=== PATIENT | male | born 1970 | race Caucasian/White ===

== ENCOUNTER 2016-10-02 22:12 | Emergency (ER) | payer BC, OTHER ==
[2016-10-02 22:47] VITALS: RESP 18; TEMP 99
[2016-10-02] MEDS ORDERED: SODIUM CHLORIDE 0.9% 500 ML IV STA (23:09)
[2016-10-02] MEDS ORDERED: ONDANSETRON 4 MG/2 ML VIAL IVP STA (23:09)
--- NOTE | 2016-10-02 23:12 | ED ---
General Adult HPI - General Chief complaint: Abdominal Pain Stated complaint: abd pain Time Seen by Provider: 10/02/16 22:45 Source: patient, RN notes reviewed Mode of arrival: ambulatory Limitations: no limitations - History of Present Illness Initial comments: This is a 45-year-old male who presents emergency Department complaining of a three-day history of epigastric abdominal pain he also states his little discomfort right upper quadrant. Patient states he's been nauseated throughout this time and not eating much because of it. Patient denies any vomiting. Patient states food seems to make him more nauseated. Patient states the pain is intermittent and goes away completely at times but comes back after a few hours. Patient states yesterday he took some Ex-Lax because he thought he might be constipated and he did have some bouts of diarrhea today. Patient denies any previous history of similar pain. Patient states she's had no abdominal surgeries. Patient denies any other medical history. Patient denies taking any other meds. Patient denies chest pain difficult breathing shortness of breath. Patient denies any recent fever or chills. - Related Data Previous Rx's Medication Instructions Recorded Ondansetron Odt [Zofran Odt] 4 mg PO Q8HR PRN #10 tab 10/03/16 Allergies Allergy/AdvReac Type Severity Reaction Status Date / Time No Known Allergies Allergy Verified 10/02/16 23:07 Review of Systems ROS Statement: Those systems with pertinent positive or pertinent negative responses have been documented in the HPI. ROS Other: All systems not noted in ROS Statement are negative. Past Medical History Past Medical History: No Reported History History of Any Multi-Drug Resistant Organisms: None Reported Past Surgical History: No Surgical Hx Reported Past Psychological History: No Psychological Hx Reported Smoking Status: Never smoker Past Alcohol Use History: Occasional Past Drug Use History: None Reported General Exam - General Exam Comments Initial Comments: GENERAL: Patient is well-developed and well-nourished. Patient is nontoxic and well- hydrated and is in mild distress. ENT: Neck is soft and supple. No significant lymphadenopathy is noted. Oropharynx is clear. Moist mucous membranes. Neck has full range of motion without eliciting any pain. EYES: The sclera were anicteric and conjunctiva were pink and moist. Extraocular movements were intact and pupils were equal round and reactive to light. Eyelids were unremarkable. PULMONARY: Unlabored respirations. Good breath sounds bilaterally. No audible rales rhonchi or wheezing was noted. CARDIOVASCULAR: There is a regular rate and rhythm without any murmurs gallops or rubs. ABDOMEN: Mild right upper quadrant and epigastric tenderness. No palpable organomegaly was noted. There is no palpable pulsatile mass. SKIN: Skin is clear with no lesions or rashes and otherwise unremarkable. NEUROLOGIC: Patient is alert and oriented x3. Cranial nerves II through XII are grossly intact. Motor and sensory are also intact. Normal speech, volume and content. Symmetrical smile. MUSCULOSKELETAL Normal extremities with adequate strength and full range of motion. LYMPHATICS: No significant lymphadenopathy is noted PSYCHIATRIC: Normal psychiatric evaluation. Limitations: no limitations Course Vital Signs 10/02/16 10/03/16 22:44 01:43 Temperature 99.0 F Pulse Rate 100 89 Respiratory 18 18 Rate Blood Pressure 123/88 135/78 O2 Sat by Pulse 97 97 Oximetry Medical Decision Making - Lab Data Result diagrams: 10/02/16 23:20 10/02/16 23:20 Lab Results 10/02/16 10/02/16 10/02/16 Range/Units 23:20 23:20 23:25 WBC 12.0 H (3.8-10.6) k/uL RBC 5.86 (4.30-5.90) m/uL Hgb 17.5 (13.0-17.5) gm/dL Hct 51.9 (39.0-53.0) % MCV 88.4 (80.0-100.0) fL MCH 29.8 (25.0-35.0) pg MCHC 33.7 (31.0-37.0) g/dL RDW 12.8 (11.5-15.5) % Plt Count 289 (150-450) k/uL Neutrophils % 76 % Lymphocytes % 14 % Monocytes % 6 % Eosinophils % 3 % Basophils % 1 % Neutrophils # 9.1 H (1.3-7.7) k/uL Lymphocytes # 1.7 (1.0-4.8) k/uL Monocytes # 0.7 (0-1.0) k/uL Eosinophils # 0.4 (0-0.7) k/uL Basophils # 0.1 (0-0.2) k/uL Sodium 138 (137-145) mmol/L Potassium 3.7 (3.5-5.1) mmol/L Chloride 102 (98-107) mmol/L Carbon Dioxide 24 (22-30) mmol/L Anion Gap 12 mmol/L BUN 12 (9-20) mg/dL Creatinine 0.90 (0.66-1.25) mg/dL Est GFR (MDRD) Af Amer >60 (>60 ml/min/1.73 sqM) Est GFR (MDRD) Non-Af >60 (>60 ml/min/1.73 sqM) Glucose 115 H (74-99) mg/dL Calcium 9.7 (8.4-10.2) mg/dL Total Bilirubin 1.5 H (0.2-1.3) mg/dL AST 14 L (17-59) U/L ALT 26 (21-72) U/L Alkaline Phosphatase 102 (38-126) U/L Total Protein 7.7 (6.3-8.2) g/dL Albumin 4.5 (3.5-5.0) g/dL Amylase 69 (30-110) U/L Lipase 89 (23-300) U/L Urine Color Yellow Urine Appearance Clear (Clear) Urine pH 5.5 (5.0-8.0) Ur Specific [place] 1.017 (1.001-1.035) Urine Protein Trace H (Negative) Urine Glucose (UA) Negative (Negative) Urine Ketones Trace H (Negative) Urine Blood Trace H (Negative) Urine Nitrite Negative (Negative) Urine Bilirubin Negative (Negative) Urine Urobilinogen <2.0 (<2.0) mg/dL Ur Leukocyte Esterase Trace H (Negative) Urine RBC 5 (0-5) /hpf Urine WBC 7 H (0-5) /hpf Urine Bacteria Rare H (None) /hpf Urine Mucus Many H (None) /hpf Disposition Clinical Impression: Biliary colic Disposition: HOME SELF-CARE Instructions: Abdominal Pain (ED), Biliary Colic (ED) Prescriptions: Ondansetron Odt [Zofran Odt] 4 mg PO Q8HR PRN #10 tab PRN Reason: Nausea Referrals: Gautam Tolbert Jr, DO [Primary Care Provider] - 1-2 days Time of Disposition: 01:26
[2016-10-02 23:31] LABS: Basophils # (A) 0.1 k/uL (0-0.2); Basophils % (A) 1 %; CH 30.3; CHCM 34.4; Eosinophils # (A) 0.4 k/uL (0-0.7); Eosinophils % (A) 3 %; HCT 51.9 % (39.0-53.0); HDW 2.47; HGB 17.5 gm/dL (13.0-17.5); Luc # (Auto) 0.13; Luc % (Auto) 1; Lymphocytes # (A) 1.7 k/uL (1.0-4.8); Lymphocytes % (A) 14 %; MCH 29.8 pg (25.0-35.0); MCHC 33.7 g/dL (31.0-37.0); MCV 88.4 fL (80.0-100.0); Mean Platelet Volume 6.4; Monocytes # (A) 0.7 k/uL (0-1.0); Monocytes % (A) 6 %; Neutrophils # (A) 9.1 k/uL (1.3-7.7); Neutrophils % (A) 76 %; RBC 5.86 m/uL (4.30-5.90); RDW 12.8 % (11.5-15.5); WBC (Perox) 12.33
[2016-10-02 23:42] LABS: ALT 26 U/L (21-72); AST 14 U/L (17-59); Alkaline Phosphatase 102 U/L (38-126); Amylase 69 U/L (30-110); Anion Gap 12 mmol/L; Blood Urea Nitrogen 12 mg/dL (9-20); Calcium 9.7 mg/dL (8.4-10.2); Carbon Dioxide 24 mmol/L (22-30); Chloride 102 mmol/L (98-107); Glucose 115 mg/dL (74-99); Non-African American GFR(MDRD) >60 (>60 ml/min/1.73 sqM); Potassium 3.7 mmol/L (3.5-5.1); Sodium 138 mmol/L (137-145); Total Bilirubin 1.5 mg/dL (0.2-1.3); Total Protein 7.7 g/dL (6.3-8.2)
[2016-10-02 23:52] LABS: Appearance,Urine Clear (Clear); Bacteria,Urine Rare /hpf; Bilirubin,Urine Negative (Negative); Glucose,Urine (UA) Negative (Negative); Ketones,Urine Trace (Negative); Leukocyte Esterase,Urine Trace (Negative); Mucus,Urine Many /hpf; Nitrite,Urine Negative (Negative); PH, Urine 5.5 (5.0-8.0); Particle Count 11381; Protein,Urine Trace (Negative); RBC,Urine 5 /hpf (0-5); Specific Gravity,Urine 1.017 (1.001-1.035); UA Billing (MACRO vs. MICRO) MICRO; Urobilinogen,Urine <2.0 mg/dL (<2.0); WBC,Urine 7 /hpf (0-5)
--- NOTE | 2016-10-03 00:36 | US ---
INDICATION: Abdominal pain TECHNIQUE: Real-time imaging of the gallbladder is performed in transverse and longitudinal projections. COMPARISON: None available. FINDINGS: Examination is limited by bowel gas. Visualized portion of the pancreas is unremarkable. Liver measures 13.5 cm in length and demonstrates normal sonographic appearance. The gallbladder is thin- walled and normally distended without evidence of cholelithiasis, sludge, pericholecystic fluid, or sonographic Salazar sign. Common bile duct is normal in caliber measuring 3.4 mm. Right kidney measures 9.4 cm in length and demonstrates a 5.3 cm simple appearing exophytic cyst arising from the midpole. There is no evidence of hydronephrosis. There is no ascites. IMPRESSION: 1. Normal sonographic appearance of the gallbladder. 2. 5.3 cm simple appearing exophytic cyst of the right kidney midpole.
[2016-10-03] MEDS ORDERED: ONDANSETRON ODT 4 MG TAB PO STA (00:57)
[2016-10-03] MEDS ORDERED: ONDANSETRON 4 MG ODT STARTER PACK 2 TAB BTL PO STA (00:57)
[2016-10-03] MEDS ORDERED: MAG HYDROX/AL HYDROX/SIMETH 30 ML, HYOSCYAMINE ELIXIR 10 ML, CIMETIDINE HCL 300 MG, LID... PO STA ×4 (00:57)
[2016-10-03] MEDS ORDERED: traMADol 50 MG STARTER PACK 3 TAB BTL PO STA (01:26)
[2016-10-03] MEDS ORDERED: traMADol 50 MG TAB PO STA (01:27)
[2016-10-03] MEDS ORDERED: ACETAMINOPHEN TAB 500 MG TAB PO STA (01:28)
[2016-10-03 02:43] VITALS: BP 135/78; PULSE 89
== END 2016-10-03 01:49 | disposition home or self-care (01) ==
LOC: EC 22:12
DX: K80.50 Calculus of bile duct without cholangitis or cholecystitis without obstruction (principal)
CPT/HCPCS: 36415; 80053; 82150; 83690; 85025; 81001; 76705; 99284; 96374; 96361 ×2; J2405; S0119

== ENCOUNTER → 2016-10-15 | Outpatient (CLI) | payer OTHER ==
--- NOTE | 2016-10-15 09:36 | NM ---
EXAMINATION TYPE: NM hepatobiliary w EF DATE OF EXAM: 10/15/2016 9:09 AM COMPARISON: Ultrasound gallbladder 02 October 2016 HISTORY: Pain, epigastric pain and decreased appetite TECHNIQUE: After the intravenous administration of 5.1 mCi Tc 99m Mebrofenin hepatobiliary scintigrap hy is performed. Immediate images post injection. FINDINGS: There is satisfactory initial accumulation of tracer by the liver. The gallbladder is visualized wit hin 4 minutes. The small bowel activity is noted within 10 minutes. At one hour 8 ounces of oral en sure plus is given to mimic CCK and gallbladder ejection fraction is calculated at 65 %, in the mary l range. Therefore there is no scintigraphic evidence of cystic or common bile duct obstruction to s uggest acute cholecystitis or gallbladder dyskinesia. IMPRESSION: Exam is within normal limits.
== END | disposition home or self-care (01) ==
LOC: RADNMMAIN 07:04
PROVIDERS: ATTEND Family Medicine
DX: R10.13 Epigastric pain (principal)
CPT/HCPCS: 78226; A9537

== ENCOUNTER → 2018-05-08 | Outpatient (CLI) | payer OTHER ==
--- NOTE | 2018-05-08 15:22 | XR ---
EXAMINATION TYPE: XR abdomen 1V DATE OF EXAM: 05/08/2018 2:52 PM CLINICAL HISTORY: Left renal calculus TECHNIQUE: Single supine KUB image of the abdomen is obtained. COMPARISON: No prior radiographs. FINDINGS: There is a 1.1 cm left renal calculus appearing within the midpole. 1.0 cm density overlyin g the left sacrum could be within a distal left ureter, relate to osseous lesion, or phlebolith. Moderate bilateral femoral acetabular arthropathy and mild degenerative changes of the lumbosacral sp ine are seen. Mild right hemicolonic fecal debris is seen. No dilated large or small bowel to suggest obstruction. IMPRESSION: There is a 1.1 cm left renal calculus and additional 1.0 cm density overlying the left sacrum that co uld be a ureteral calculus, phlebolith or osseous lesion. This could be further evaluated with CT.
== END ==
LOC: RADXRMAIN 14:41
PROVIDERS: ATTEND Urology
DX: N20.0 Calculus of kidney (principal)
CPT/HCPCS: 74018

== ENCOUNTER → 2018-05-09 | Outpatient (CLI) | payer OTHER ==
--- NOTE | 2018-05-09 14:58 | CT ---
EXAMINATION TYPE: CT abdomen pelvis wo con DATE OF EXAM: 05/09/2018 HISTORY: left flank pain, hx of stones CT DLP: 553.3 mGycm. Automated Exposure Control for Dose Reduction was Utilized. TECHNIQUE: CT scan of the abdomen and pelvis is performed without oral or IV contrast. COMPARISON: CT abdomen pelvis March 06, 2013 FINDINGS: Within the limitations of a non-contrast study, the following observations are made. LUNG BASES: No significant abnormality is appreciated. LIVER/GB: No significant abnormality is appreciated. PANCREAS: No significant abnormality is seen. SPLEEN: No significant abnormality is seen. ADRENALS: No significant abnormality is seen. KIDNEYS: There are 2 calculi lower pole level right kidney coronal image 46 measuring up to 3 mm in s ize on current study. There is partially exophytic simple appearing cyst laterally mid pole level rig ht kidney measuring 5.6 cm long axis axial image 68. There are 3 calculi scattered throughout the lef t kidney including largest elongated calculus measuring 11 mm long axis coronal image 62 at mid pole level posteriorly. There is obstructing 9 mm mid to distal ureter calculus just past pelvic brim axia l image 116 causing moderate left-sided pyelocaliectasis and proximal hydroureter. No right-sided hyd ronephrosis obstructing ureter calculi are seen. There are few scattered pelvic phleboliths. No intra luminal calculus and bladder is noted. BOWEL: Normal-appearing gas-filled appendix is incidentally seen from cecum. GENITAL ORGANS: No gross abnormality seen. LYMPH NODES: No greater than 1cm abdominal or pelvic lymph nodes are appreciated. OSSEOUS STRUCTURES: Moderate multilevel spurring in the spine is present. OTHER: No significant additional abnormality is seen. IMPRESSION: There is obstructing 9 mm calculus mid to distal left ureter causing moderate left-sided hydronephrosis on current study.
== END ==
LOC: RADCTMAIN 14:21
PROVIDERS: ATTEND Urology
DX: N13.2 Hydronephrosis with renal and ureteral calculous obstruction (principal)
CPT/HCPCS: 74176

== ENCOUNTER 2018-09-10 07:13 | Day surgery (SDC) | payer OTHER ==
[2018-09-05 12:15] VITALS: BMI 29.0
[~2018-09-10 07:13] MED LIST: DEXAMETHASONE SOD PHOSPHATE 10 MG/ML 1 ML VIAL IV ONE; DEXAMETHASONE SOD PHOSPHATE 4 MG/ML 1 ML VIAL IV ONE; FAMOTIDINE 20 MG/2 ML VIAL IV ONE; LACTATED RINGERS 1,000 ML IV SCH; LIDOCAINE 1% 20 ML VIAL (10MG/ML) FOR IV START INTRADERMA PRN; MIDAZOLAM 2 MG/2 ML VIAL IV PRN; ONDANSETRON 4 MG/2 ML VIAL IVP ONE
[2018-09-10 07:33] VITALS: RESP 16
[2018-09-10] MEDS ORDERED: SUCCINYLCHOLINE CHLORIDE 100 MG/5 ML SYR IV ONE (08:51)
[2018-09-10] MEDS ORDERED: PROPOFOL 10 MG/ML 20 ML VIAL IV ONE (08:51)
[2018-09-10] MEDS ORDERED: DEXAMETHASONE SOD PHOS (MDV) 100 MG/10 ML VIAL ONE (08:51)
[2018-09-10] MEDS ORDERED: MIDAZOLAM 2 MG/2 ML VIAL ONE (08:51)
[2018-09-10] MEDS ORDERED: LIDOCAINE 1% INJ 10MG/ML (20 ML MDV) ONE (08:51)
[2018-09-10] MEDS ORDERED: fentaNYL (PF) 50 MCG/ML 2 ML AMP ONE (08:51)
--- NOTE | 2018-09-10 09:27 | P.OP ---
Date of Procedure: 09/10/18 Preoperative Diagnosis: Left vocal cord nodule Postoperative Diagnosis: Same Procedure(s) Performed: Microlaryngoscopy with excision left vocal cord nodule Anesthesia: BRENDA Surgeon: Cliff Dewitt Estimated Blood Loss (ml): 1 Pathology: other (Left vocal cord lesion) Condition: stable Disposition: PACU Indications for Procedure: This 47-year-old white male whose had difficulties with chronic hoarseness. He had video stroboscopy showing a small left posterior vocal cord nodule Operative Findings: Mild diffuse edema of the left true vocal cord. Posterior aspect of the left true vocal cord was a small keratotic lesion approximately 2 mm was excised Description of Procedure: The patient was brought in the operative suite and placed in a supine position. Patient underwent induction of general anesthesia with oral endotracheal intubation without difficulty. The patient was prepped and draped in usual aseptic fashion. Tooth guard was placed. Direct laryngoscopy was performed with systematic evaluation of the base of tongue vallecula both piriform sinuses post cricoid area and endolarynx. With the larynx in good visualization the Zeiss microscope was brought into position and larynx was well visualized. Microcup forceps were then used to excise the keratotic lesion grossly entirely. This was excised down to the lamina propria which was left intact. Hemostasis was gained spontaneously. Patient was suctioned in the laryngeal area. The laryngoscope and tooth removed. Patient was allowed to emerge from general anesthesia having tolerated well was extubated in the operative suite and transferred to postop recovery area in satisfactory condition.
[2018-09-10 09:39] VITALS: TEMP 98
[2018-09-10] MEDS: HYDROmorphone 0.5 MG/0.5 ML SYRINGE IVP PRN ×4 (09:42→10:05)
[2018-09-10 10:59] VITALS: BP 136/84; PULSE 93
== END 2018-09-10 11:12 | disposition home or self-care (01) ==
LOC: OR 07:13
PROVIDERS: ATTEND Otolaryngology
DX: J38.1 Polyp of vocal cord and larynx (principal); J38.3 Other diseases of vocal cords; K21.9 Gastro-esophageal reflux disease without esophagitis; Z79.2 Long term (current) use of antibiotics; Z79.899 Other long term (current) drug therapy; Z87.891 Personal history of nicotine dependence; Z87.442 Personal history of urinary calculi
CPT/HCPCS: 88305; 31541; J2250; J1100 ×2; J2405; J2001; J3010; J0330; J2704; J1170